=== PATIENT | female | born 1950 | race Caucasian/White ===

== ENCOUNTER 2017-02-14 10:10 | Outpatient (CLI) | payer MEDICARE, BC | END 2017-02-14 10:11 | disposition critical access hospital (66) | LOC: EMS 10:10 | PROVIDERS: ATTEND Surgery | DX: R07.9 Chest pain, unspecified (principal); R11.2 Nausea with vomiting, unspecified; R19.7 Diarrhea, unspecified | CPT/HCPCS: A0425; A0427 ==

== ENCOUNTER 2017-02-14 10:30 | Emergency (ER) | payer MEDICARE, BC ==
--- NOTE | 2017-02-14 11:06 | ED Physician Documentation ---
PD HPI CHEST PAIN - Stated complaint Stated Complaint: CP - Chief complaint Chief Complaint: Cardiac - History obtained from History obtained from: Patient - History of Present Illness Timing - onset: Enter time (1200), Last night Timing - onset during: Rest Timing - duration: Hours Timing - details: Gradual onset, Still present Quality: Pressure, Sharp Location: Right chest Radiation: Back Improved by: Rest Worsened by: Inspiration, Movement, Palpation Associated symptoms: Nausea, Vomiting. No: Shortness of air, Diaphoresis Similar symptoms before: Diagnosis (panic attack) Recently seen: Not recently seen - Additional information Additional information: 66-year-old female who has a history of hypertension and GERD has developed right-sided chest pain about midnight last night she has been able unable to get comfortable from this at all she is now discovered that this is actually under her ribs on the right side and she has vomited about 8 times. Review of Systems Constitutional: denies: Fever, Chills Eyes: denies: Decreased vision Ears: denies: Ear pain Nose: denies: Congestion Throat: denies: Sore throat Cardiac: reports: Chest pain / pressure. denies: Palpitations, Pedal edema, Calf pain Respiratory: denies: Dyspnea, Cough GI: reports: Abdominal Pain, Nausea, Vomiting : denies: Dysuria, Frequency PD PAST MEDICAL HISTORY - Past Medical History Past Medical History: Yes Cardiovascular: Hypertension Respiratory: None Endocrine/Autoimmune: None GI: GERD : None HEENT: Chronic vision loss Psych: Anxiety, Panic attacks Musculoskeletal: None Derm: None - Past Surgical History Past Surgical History: Yes General: Colonoscopy, EGD - Present Medications Home Medications: Ambulatory Orders Medication Instructions Recorded Confirmed Aspirin [Aspir 81] 81 mg DAILY 02/22/15 02/14/17 Calcium Carbonate [Tums] 1 ea PO DAILY 02/22/15 02/14/17 Lisinopril 20 mg DAILY 02/22/15 02/14/17 Multivitamin [Multivitamins] 1 ea PO DAILY 02/22/15 02/14/17 Omeprazole 20 mg PO DAILY 02/22/15 02/14/17 Sertraline HCl 50 mg DAILY 02/22/15 02/14/17 diphenhydrAMINE [Benadryl] 25 mg QPM 02/22/15 02/14/17 HYDROcod/ACETAM 5/325 [[place] 5/325] 1 - 2 ea PO Q6H PRN #15 tablet 02/14/17 Ondansetron Odt [Zofran] 4 mg TL Q6H PRN #10 tablet 02/14/17 - Allergies Allergies/Adverse Reactions: Allergies Allergy/AdvReac Type Severity Reaction Status Date / Time No Known Drug Allergies Allergy Verified 02/14/17 10:40 - Social History Does the pt smoke?: No Smoking Status: Never smoker Does the pt drink ETOH?: No Does the pt have substance abuse?: No - Immunizations Immunizations are current?: Yes PD ED PE NORMAL - Vitals Vital signs reviewed: Yes (Hypertensive) - General General: Alert and oriented X 3, Well developed/nourished, Other (Patient has the expression of pain with sales order clerk tone and flattened affect) - HEENT HEENT: Atraumatic, PERRL, EOMI - Neck Neck: Supple, no meningeal sign, No bony TTP - Cardiac Cardiac: RRR, No murmur - Respiratory Respiratory: No respiratory distress, Clear bilaterally - Abdomen Abdomen: Normal bowel sounds, Soft, Other (RUQ pain to palpation without garding or rebound. Specifically the gallbaldder is tender on sonographic palpation. ) - Back Back: No CVA TTP, No spinal TTP - Derm Derm: Normal color, No rash - Extremities Extremities: No deformity, No edema - Neuro Neuro: No motor deficit, No sensory deficit Eye Opening: Spontaneous Motor: Obeys Commands Verbal: Oriented GCS Score: 15 - Psych Psych: Normal mood, Normal affect Results - Vitals Vitals: Vital Signs - 24 hr 02/14/17 02/14/17 02/14/17 10:36 10:43 13:37 Temperature 36.7 C Heart Rate 70 63 Respiratory 16 16 Rate Blood Pressure 149/100 H 115/78 Blood Pressure 156/94 H [Left] O2 Saturation 100 93 Oxygen O2 Source Room air - EKG (time done) 1040 Rate: Rate (enter#) (62) Rhythm: NSR Ischemia: Normal ST segments Compare to prior EKG: Unchanged from prior EKG (02-22-2015) Computer interpretation: Agree with computer - Labs Labs: Laboratory Tests 02/14/17 02/14/17 02/14/17 11:50 11:50 11:50 WBC 11.2 H RBC 4.96 Hgb 13.2 Hct 39.0 MCV 78.6 L MCH 26.7 L MCHC 34.0 RDW 13.6 Plt Count 277 MPV 7.6 L Neut # 10.1 H Lymph # 0.7 L [place] # 0.3 Eos # 0.0 Baso # 0.1 Absolute Nucleated RBC 0.00 Nucleated RBC % 0.0 Sodium 135 Potassium 4.0 Chloride 101 Carbon Dioxide 24 Anion Gap 10.0 BUN 13 Creatinine 0.7 Estimated GFR (MDRD) 84 L Glucose 140 H Calcium 9.1 Total Bilirubin 0.6 AST 19 ALT 18 Alkaline Phosphatase 66 Troponin I < 0.04 Total Protein 7.1 Albumin 4.1 Globulin 3.0 Albumin/Globulin Ratio 1.4 Lipase 21 L Urine Color Urine Clarity Urine pH Ur Specific [place] Urine Protein Urine Glucose (UA) Urine Ketones Urine Occult Blood Urine Nitrite Urine Bilirubin Urine Urobilinogen Ur Leukocyte Esterase Ur Microscopic Review Urine Culture Comments 02/14/17 12:30 WBC RBC Hgb Hct MCV MCH MCHC RDW Plt Count MPV Neut # Lymph # [place] # Eos # Baso # Absolute Nucleated RBC Nucleated RBC % Sodium Potassium Chloride Carbon Dioxide Anion Gap BUN Creatinine Estimated GFR (MDRD) Glucose Calcium Total Bilirubin AST ALT Alkaline Phosphatase Troponin I Total Protein Albumin Globulin Albumin/Globulin Ratio Lipase Urine Color YELLOW Urine Clarity CLEAR Urine pH 7.0 Ur Specific [place] 1.020 Urine Protein NEGATIVE Urine Glucose (UA) NEGATIVE Urine Ketones NEGATIVE Urine Occult Blood NEGATIVE Urine Nitrite NEGATIVE Urine Bilirubin NEGATIVE Urine Urobilinogen 0.2 (NORMAL) Ur Leukocyte Esterase NEGATIVE Ur Microscopic Review NOT INDICATED Urine Culture Comments NOT INDICATED - Rads (name of study) u/s abd limited Radiology: Prelim report reviewed (Impression: 1. Cholelithiasis. No sonographic evidence of acute cholecystitis although the patient reportedly is on pain medication and therefore a false negative sonographic Wisdom sign cannot be excluded. 2. Mild/borderline common bile duct dilation, tapering to normal diameter distally. 3.Prominent liver with diffuse fatty infiltration. 4. Benign 5 cm hepatic cyst.), EMP read indepedently, See rad report Procedures - Bedside sono Bedside sono by EMP: With use of bedside ultrasound the gallbladder is imaged and there are multiple large stones. There is no free fluid around the gallbladder the gallbladder wall is not measured PD MEDICAL DECISION MAKING - ED course Complexity details: reviewed old records, reviewed results, re-evaluated patient , considered differential, d/w patient ED course: 66-year-old female with acute right upper quadrant abdominal pain has cholelithiasis on bedside exam confirmed with formal ultrasound and reported as negative for acute cholecystitis. The patient has good control of her pain with IV toradal. She has had a working relationship with Dr. Laboy and will follow up with her this week. She is given instructions to return to the ED if she has persistent or recurrent symptoms this weekend. Departure - Departure Disposition: Home, Self Care Clinical Impression: Cholelithiasis Qualifiers: Cholelithiasis location: gallbladder Cholecystitis presence: without cholecystitis Biliary obstruction: with biliary obstruction Qualified Code(s): K80.21 - Calculus of gallbladder without cholecystitis with obstruction Condition: Stable Instructions: ED Gallstone W Biliary Colic Follow-Up: Estefany Chaudhry PA-C [Primary Care Provider] - POLINA LABOY MD [Provider Admit Priv/Credential] - Prescriptions: HYDROcod/ACETAM 5/325 [[place] 5/325] 1 - 2 ea PO Q6H PRN #15 tablet PRN Reason: Pain Ondansetron Odt [Zofran] 4 mg TL Q6H PRN #10 tablet PRN Reason: Nausea / Vomiting
[2017-02-14] MEDS ORDERED: ONDANSETRON 4 MG/2 ML VIAL IVP STA (11:42)
[2017-02-14] MEDS ORDERED: KETOROLAC 60 MG/2 ML VIAL IVP STA (11:42)
[2017-02-14 12:00] LABS: BASOPHILS # (AUTO) 0.1 10^3/uL (0.0-0.1); BASOPHILS % (AUTO) 0.5 %; HGB - HEMOGLOBIN 13.2 g/dL (12.0-16.0); LYMPHOCYTES # (AUTO) 0.7 10^3/uL (1.5-3.5); LYMPHOCYTES % (AUTO) 6.3 %; MEAN CORPUSCULAR HEMOGLOBIN 26.7 pg (27.0-31.0); MEAN CORPUSCULAR VOLUME 78.6 fL (81.0-99.0); MEAN PLATELET VOLUME 7.6 fL (7.9-10.8); MONOCYTES # (AUTO) 0.3 10^3/uL (0.0-1.0); MONOCYTES % (AUTO) 2.8 %; NEUTROPHILS # (AUTO) 10.1 10^3/uL (1.5-6.6); NEUTROPHILS % (AUTO) 90.4 %; PLT - PLATELET COUNT 277 10^3/uL (130-450); RED BLOOD COUNT 4.96 10^6/uL (4.20-5.40); RED CELL DISTRIBUTION WIDTH 13.6 % (12.0-15.0); WHITE BLOOD COUNT 11.2 x10^3/uL (4.8-10.8)
[2017-02-14 12:12] LABS: ALBUMIN 4.1 g/dL (3.2-5.5); ALBUMIN/GLOBULIN RATIO 1.4 (1.0-2.2); BILIRUBIN,TOTAL 0.6 mg/dL (0.2-1.0); CALCIUM 9.1 mg/dL (8.5-10.3); CREATININE 0.7 mg/dL (0.4-1.0); TOTAL PROTEIN 7.1 g/dL (6.7-8.2)
[2017-02-14 12:49] LABS: BILIRUBIN,URINE NEGATIVE (NEGATIVE); GLUCOSE, URINE (UA) NEGATIVE (NEGATIVE); KETONES,URINE (UA) NEGATIVE (NEGATIVE); LEUKOCYTE ESTERASE, URINE NEGATIVE (NEGATIVE); NITRITE,URINE NEGATIVE (NEGATIVE); OCCULT BLOOD,URINE NEGATIVE (NEGATIVE); PROTEIN,URINE NEGATIVE (NEGATIVE); UROBILINOGEN,URINE 0.2 (NORMAL) E.U./dL (NORMAL)
[2017-02-14 12:54] LABS: CLARITY,URINE CLEAR (CLEAR)
--- NOTE | 2017-02-14 13:07 | Ultrasound Preliminary Report ---
Exam: US ABDOMEN LIMITED IMPRESSION: 1. Cholelithiasis. No sonographic evidence of acute cholecystitis although the patient reportedly is on pain medication and therefore a false negative sonographic Wisdom sign cannot be excluded. 2. Mild/borderline common bile duct dilatation, tapering to normal diameter distally. 3. Prominent liver with diffuse fatty infiltration. 4. Benign 5 cm hepatic cyst. [facility] SITE ID: [id number]
--- NOTE | 2017-02-14 13:07 | Ultrasound Report ---
EXAM: ABDOMEN ULTRASOUND LIMITED, RUQ EXAM DATE: 02/14/2017 12:30 PM. CLINICAL HISTORY: RUQ pain. COMPARISON: None. TECHNIQUE: Real-time scanning was performed with static images obtained. FINDINGS: Liver: Diffuse increase echogenicity consistent fatty infiltration. Superior lateral right lobe benig n appearing 5.0 cm cyst. No other focal abnormality. Large, right lobe length 19.3 cm. Main portal ve in flow: Hepatopetal. Gallbladder: Multiple mobile gallstones without evidence of wall thickening, dilatation, adjacent flu id or sonographic Wisdom sign. However, the patient reportedly is on pain meds and therefore a false negative Wisdom sign cannot be excluded. Biliary System: CBD measures 7.8 cm proximally, 4.3 cm distally. mm. Distalmost portion not completel y visualized. No intrahepatic ductal dilatation demonstrated. Other: The visualized right kidney is unremarkable. No free fluid demonstrated. IMPRESSION: 1. Cholelithiasis. No sonographic evidence of acute cholecystitis although the patient reportedly is on pain medication and therefore a false negative sonographic Wisdom sign cannot be excluded. 2. Mild/borderline common bile duct dilatation, tapering to normal diameter distally. 3. Prominent liver with diffuse fatty infiltration. 4. Benign 5 cm hepatic cyst. [facility] Referring Provider Line: [phone] SITE ID: [id number]
[2017-02-14 13:39] VITALS: BP 115/78
[2017-02-14] MEDS ORDERED: ONDANSETRON ODT 4 MG TABLET TL STA (13:41)
== END 2017-02-14 13:46 | disposition home or self-care (01) ==
LOC: EDUNIT# → ED 10:30
DX: K80.21 Calculus of gallbladder without cholecystitis with obstruction (principal); I10 Essential (primary) hypertension; Z79.82 Long term (current) use of aspirin
CPT/HCPCS: 36415; 76705; 80053; 81003; 83690; 84484; 85025; 93005; 96374; 96375; 99284; Q0162; 81001; 87086

== ENCOUNTER 2017-06-01 08:00 | Outpatient (CLI) | payer MEDICARE, BC ==
[2017-06-01 13:20] LABS: HB2 TOTAL 15.1 g/dL; HEMOGLOBIN A1C 0.57 g/dL; HEMOGLOBIN A1C % 5.6 % (4.6-6.2)
[2017-06-01 13:21] LABS: ALBUMIN 4.1 g/dL (3.2-5.5); ALBUMIN/GLOBULIN RATIO 1.5 (1.0-2.2); ALKALINE PHOSPHATASE 68 IU/L (42-121); ALT ALANINE AMINOTRANSFERASE 19 IU/L (10-60); AST ASPARTATE AMINOTRANSFERASE 19 IU/L (10-42); BILIRUBIN,TOTAL 0.8 mg/dL (0.2-1.0); BUN - BLOOD UREA NITROGEN 11 mg/dL (6-20); CALCIUM 9.3 mg/dL (8.5-10.3); CARBON DIOXIDE - CO2 26 mmol/L (21-32); CHLORIDE 103 mmol/L (101-111); CHOL/HDL RATIO 4.4 (<4.4); CHOLESTEROL 195 mg/dL; CREATININE 0.8 mg/dL (0.4-1.0); GFR - MDRD 72 (>89); GLUCOSE 88 mg/dL (70-100); HDL CHOLESTEROL 44 mg/dL; LDL CHOLESTEROL,CALCULATED 128 mg/dL; LDL/HDL RATIO 2.9 (<4.4); SODIUM 136 mmol/L (135-145); TOTAL PROTEIN 6.9 g/dL (6.7-8.2); VLDL CHOLESTEROL 23 mg/dL
== END 2017-06-01 08:01 ==
LOC: LAB.WCP 08:00
PROVIDERS: ATTEND Physician Assistant Medical
DX: R73.9 Hyperglycemia, unspecified (principal); E78.5 Hyperlipidemia, unspecified
CPT/HCPCS: 36415; 80053; 80061; 83036; 83721

== ENCOUNTER 2017-09-17 14:48 | Outpatient (CLI) | payer MEDICARE, BC ==
--- NOTE | 2017-09-18 14:42 | MRI Report ---
Procedure Date: 09/17/2017 Accession Number: [id number] / [id number] Procedure: MRI - Shoulder LT W/O CPT Code: FULL RESULT: EXAM: LEFT SHOULDER MRI WITHOUT CONTRAST EXAM DATE: 09/17/2017 03:29 PM. CLINICAL HISTORY: Chronic left shoulder pain. Shoulder impingement syndrome. COMPARISON: Radiographs of the left shoulder 01/30/2016. TECHNIQUE: Multiplanar, multisequence T1-weighted and fluid-sensitive sequences of the shoulder without contrast. Other: None. FINDINGS: Acromioclavicular Region: The acromion is type II. Jzfb-lf-refdgefi osteoarthritis and small effusion at the acromioclavicular joint. The coracoacromial and coracoclavicular ligaments are intact. Small amount of fluid at the subacromial/subdeltoid bursa. Glenohumeral Region: No subluxation. Ibcaa-wp-miznvzll sized joint effusion. The articular cartilage is unremarkable. The glenohumeral ligaments and joint capsule are unremarkable. Bone Marrow: Small enthesophytes at the greater tuberosity. No acute fracture or bone lesions. Labrum: The labrum is unremarkable on this nonarthrographic study. Musculature/Rotator Cuff: There is supraspinatus tendinosis. There is an approximately 7 x 7 mm high-grade partial-thickness intrasubstance insertional tear at the distal end of the supraspinatus-infraspinatus tendon junction. There is bursal surface fraying at the supraspinatus and infraspinatus tendons. The teres minor and subscapularis tendons are intact. Grade 1 fatty atrophy of the supraspinatus, infraspinatus, and subscapularis muscles. Grade 4 atrophy of the teres minor muscle. Biceps Tendon: There is complete tear of the long head biceps tendon. The proximal, intra-articular segment of the long head biceps tendon is retracted and flipped posteromedially within the posteromedial superior aspect of the glenohumeral joint (coronal images 7 through 13, sagittal images 16 through 18, and axial images 22-26). The distal aspect of the long head biceps tendon is torn and retracted distally. Other: The subcutaneous tissues are unremarkable. IMPRESSION: 1. Complete tear of the long head biceps tendon. The proximal, intra-articular segment of the long head biceps tendon is retracted and flipped posteromedially within the posteromedial superior aspect of the glenohumeral joint. The distal aspect of the long head biceps tendon is torn and retracted distally. 2. Supraspinatus tendinosis. A 7 x 7 mm high-grade partial-thickness intrasubstance insertional tear at the distal end of the supraspinatus-infraspinatus tendon junction. Bursal surface fraying at the supraspinatus and infraspinatus tendons. 3. Grade 1 fatty atrophy of the supraspinatus, infraspinatus, and subscapularis muscles. Grade 4 fatty atrophy of the teres minor muscle which may be due to a chronic denervation process such as quadrilateral space syndrome. 4. Bmbo-hn-qhhvwvus osteoarthritis and small effusion at the acromioclavicular joint. Small amount of fluid at the subacromial/subdeltoid bursa. Small to moderate-sized glenohumeral joint effusion. [facility] MUSCULOSKELETAL RADIOLOGY SECTION
== END 2017-09-17 14:49 | disposition home or self-care (01) ==
LOC: DI 14:48
PROVIDERS: ATTEND Physician Assistant Medical
DX: M75.42 Impingement syndrome of left shoulder (principal); M75.102 Unspecified rotator cuff tear or rupture of left shoulder, not specified as traumatic; S46.112A Strain of muscle, fascia and tendon of long head of biceps, left arm, initial encounter; M19.012 Primary osteoarthritis, left shoulder

== ENCOUNTER 2018-05-03 10:10 | Outpatient (CLI) | payer MEDICARE, BC ==
--- NOTE | 2018-05-03 11:27 | XRAY Report ---
Reason: COUGH,CHRONIC Procedure Date: 05/03/2018 Accession Number: [id number] / [id number] Procedure: WCP - Chest 2 View X-Ray CPT Code: 26957 FULL RESULT: EXAM: CHEST RADIOGRAPHY EXAM DATE: 05/03/2018 10:36 AM. CLINICAL HISTORY: Cough, chronic. COMPARISON: None. TECHNIQUE: 2 views. FINDINGS: Lungs/Pleura: No focal opacities evident. No pleural effusion. No pneumothorax. Normal volumes. Mediastinum: Heart and mediastinal contours are unremarkable. Other: None. IMPRESSION: Normal 2-view chest radiography. [facility]
== END 2018-05-03 10:11 | disposition home or self-care (01) ==
LOC: DI.WCP 10:10
PROVIDERS: ATTEND Physician Assistant Medical
DX: R05 Cough (principal)
CPT/HCPCS: 71046

== ENCOUNTER 2018-05-28 08:14 | Outpatient (CLI) | payer MEDICARE, BC ==
[2018-05-28 13:43] LABS: BASOPHILS # (AUTO) 0.1 10^3/uL (0.0-0.1); BASOPHILS % (AUTO) 1.4 %; EOSINOPHILS # (AUTO) 0.1 10^3/uL (0.0-0.7); EOSINOPHILS % (AUTO) 1.6 %; HGB - HEMOGLOBIN 13.9 g/dL (12.0-16.0); LYMPHOCYTES # (AUTO) 2.2 10^3/uL (1.5-3.5); LYMPHOCYTES % (AUTO) 32.7 %; MEAN CORPUSCULAR HEMOGLOBIN 26.9 pg (27.0-31.0); MEAN CORPUSCULAR HGB CONC 32.7 g/dL (32.0-36.0); MEAN CORPUSCULAR VOLUME 82.4 fL (81.0-99.0); MEAN PLATELET VOLUME 8.5 fL (7.9-10.8); MONOCYTES # (AUTO) 0.5 10^3/uL (0.0-1.0); MONOCYTES % (AUTO) 8.3 %; NEUTROPHILS # (AUTO) 3.7 10^3/uL (1.5-6.6); PLT - PLATELET COUNT 338 10^3/uL (130-450); RED BLOOD COUNT 5.19 10^6/uL (4.20-5.40); RED CELL DISTRIBUTION WIDTH 13.9 % (12.0-15.0); WHITE BLOOD COUNT 6.6 x10^3/uL (4.8-10.8)
[2018-05-28 14:06] LABS: ALBUMIN 3.9 g/dL (3.2-5.5); ALBUMIN/GLOBULIN RATIO 1.2 (1.0-2.2); ALKALINE PHOSPHATASE 80 IU/L (42-121); ALT ALANINE AMINOTRANSFERASE 22 IU/L (10-60); AST ASPARTATE AMINOTRANSFERASE 22 IU/L (10-42); BILIRUBIN,TOTAL 0.8 mg/dL (0.2-1.0); BUN - BLOOD UREA NITROGEN 21 mg/dL (6-20); CALCIUM 9.4 mg/dL (8.5-10.3); CARBON DIOXIDE - CO2 27 mmol/L (21-32); CHLORIDE 102 mmol/L (101-111); CHOL/HDL RATIO 4.2 (<4.4); CHOLESTEROL 220 mg/dL; CREATININE 0.8 mg/dL (0.4-1.0); GFR - MDRD 72 (>89); GLUCOSE 98 mg/dL (70-100); HDL CHOLESTEROL 53 mg/dL; LDL CHOLESTEROL,CALCULATED 132 mg/dL; LDL/HDL RATIO 2.5 (<4.4); SODIUM 137 mmol/L (135-145); TOTAL PROTEIN 7.2 g/dL (6.7-8.2); VLDL CHOLESTEROL 35 mg/dL
== END 2018-05-28 23:59 | disposition home or self-care (01) ==
LOC: LAB.WCP 08:14
PROVIDERS: ATTEND Physician Assistant Medical
DX: E78.5 Hyperlipidemia, unspecified (principal); I10 Essential (primary) hypertension
CPT/HCPCS: 36415; 80053; 80061; 83721; 85025

== ENCOUNTER 2018-07-06 08:19 | Outpatient (CLI) | payer MEDICARE, BC ==
--- NOTE | 2018-07-06 11:20 | DEXA Report ---
Reason: BONE DISORDER Procedure Date: 07/06/2018 Accession Number: [id number] / [id number] Procedure: DEX - Dexa Spine and/or Hip CPT Code: FULL RESULT: EXAM: Dexa Spine and/or Hip DATE: 07/06/2018 8:48 AM CLINICAL HISTORY: POSTMENOPAUSAL TECHNIQUE: Dual energy x-ray absorptiometry (DXA) was performed on a [employer] System. Regions measured are the AP Spine, femoral neck, and if needed forearm. COMPARISON: 05/23/2015 In accordance with the International Society for Clinical Densitometry (ISCD) guidelines, data from previous exams may be reanalyzed using current recommendations and techniques. This is done to allow a more accurate basis for comparison with the current study. FINDINGS: The data for the lumbar spine is as follows: BMD (g/cm/cm) T-SCORE Z-SCORE REGION L1 0.792 -2.8 -2.4 L2 0.904 -2.5 -2.0 L3 1.043 -1.3 -0.9 L4 0.974 -1.9 -1.4 TOTAL 0.934 -2.0 -1.6 NOTE: All evaluable vertebrae are used for classification The data for the hip is as follows: BMD (g/cm/cm) T-SCORE Z-SCORE REGION Neck 0.812 -1.6 -0.9 TOTAL 0.757 -2.0 -1.6 NOTE: The femoral neck or total proximal femur, whichever is lowest, is used for classification. IMPRESSION: THE WHO CLASSIFICATION BASED ON THE INTERNATIONAL REFERENCE STANDARD IS OSTEOPENIA (Reference Total Left Hip and Lumbar Spine L1-L4). THE FRACTURE RISK IS INCREASED. RECOMMENDATION: Patients with diagnosis of osteoporosis or osteopenia should have regular bone mineral density assessment. For those eligible for Medicare, routine testing is allowed once every 2 years. Testing frequency can be increased for patients who have rapidly progressing disease or for those who are receiving medical therapy to restore bone mass. COMMENT: World Health Organization (WHO) definitions for osteoporosis and osteopenia: NORMAL BMD: T-score at -1.0 or higher, fracture risk is low OSTEOPENIA BMD: T-score between -1.0 and -2.5, fracture risk is increased. OSTEOPOROSIS BMD: T-score at -2.5 or lower, fracture risk is high. National Osteoporosis Foundation recommends: 1. Obtain adequate dietary calcium (at least 1200 mg per day) and vitamin D (400-800 international units per day). 2. Participate, as appropriate, in regular weightbearing and muscle-strengthening exercise. 3. Avoid tobacco use and reduce alcohol and caffeine intake. 4. For more detailed information see the website at www.NOF.org.
== END 2018-07-06 08:20 | disposition home or self-care (01) ==
LOC: DI 08:19
PROVIDERS: ATTEND Physician Assistant Medical
DX: M85.89 Other specified disorders of bone density and structure, multiple sites (principal)
CPT/HCPCS: 77080

== ENCOUNTER 2018-07-06 08:19 | Outpatient (CLI) | payer MEDICARE, BC ==
--- NOTE | 2018-07-06 15:17 | Mammography Report ---
Reason: SCREENING MAMMO Procedure Date: 07/06/2018 Accession Number: [id number] / [id number] Procedure: GIOVANNA - Screening Mammo w/Nikc CPT Code: FULL RESULT: EXAM: Screening Mammo w/Nick DATE: 07/06/2018 9:06 AM CLINICAL HISTORY: Routine screening TECHNIQUE: (B) - Bilateral CC and MLO views were obtained. COMPARISON: 04/09/2015, 06/03/2012 PARENCHYMAL PATTERN: (A) - The breasts demonstrate scattered fibroglandular densities bilaterally. FINDINGS: No significant interval change. There are no suspicious masses, calcifications, or areas of distortion. IMPRESSION: Negative examination. BI-RADS category 1. RECOMMENDATION: (ANNUAL) - Recommend routine annual screening mammography. BI-RADS CATEGORY: (1) - Negative. STANDARD QUALIFYING STATEMENTS: 1. This examination was not reviewed with the aid of Computer-Aided Detection (CAD). 2. A negative or benign imaging report should not preclude biopsy if clinically suspicious findings are present. 3. Dense breasts may obscure an underlying neoplasm. 4. This examination was reviewed with the aid of 3D breast imaging (tomosynthesis).
== END 2018-07-06 08:20 | disposition home or self-care (01) ==
LOC: DI 08:19
DX: Z12.31 Encounter for screening mammogram for malignant neoplasm of breast (principal)
CPT/HCPCS: 77063; 77067

== ENCOUNTER 2019-11-17 18:33 | Outpatient (CLI) | payer MEDICARE, BC ==
--- NOTE | 2019-11-18 09:03 | Ultrasound Report ---
PROCEDURE: Duplex Ext Veins Left INDICATIONS: LEFT LEG SWELLING TECHNIQUE: Real-time imaging, as well as color and pulse Doppler interrogation, were performed of the lower extr emity deep veins from the inguinal ligament to the popliteal fossa. COMPARISON: None. FINDINGS: The deep veins are normally compressible, and free of intraluminal thrombus. Color and pu lse Doppler demonstrate normal phasic intraluminal flow. There is normal augmentation response to di stal compression maneuver. Fluid collections noted in the popliteal fossa. Fluid collection in the medial aspect of the poplitea l fossa measures 4.1 x 0.9 cm. Fluid collection in the mid aspect of the popliteal fossa measures 6.2 cm in diameter. Fluid pocket in the lateral margin of the popliteal fossa measures 1.9 x 2.3 x 0.7 c m. IMPRESSION: 1. No evidence of deep vein thrombosis involving the left lower extremity. 2. Multiple fluid collections in the left popliteal fossa. Fluid collections are nonspecific may be r elated to popliteal cyst or could represent seroma/hematomas or abscess. These correlate with clinica l data. Reviewed by: Xiomara Yap MD, PhD on 11/18/2019 9:02 AM PDT Approved by: Xiomara Yap MD, PhD on 11/18/2019 9:02 AM PDT Station ID: [id number]
== END 2019-11-17 18:34 | disposition home or self-care (01) ==
LOC: DI 18:33
PROVIDERS: ATTEND Family Medicine
DX: R93.6 Abnormal findings on diagnostic imaging of limbs (principal)

== ENCOUNTER 2019-12-23 10:48 | Outpatient (CLI) | payer MEDICARE, BC ==
--- NOTE | 2019-12-23 17:03 | XRAY Report ---
PROCEDURE: Knee Standing LT INDICATIONS: POPLITEAL CYST TECHNIQUE: 3 views of the left knee, and 2 views of the right knee. COMPARISON: None. FINDINGS: Bones: No acute fractures or dislocations. No suspicious bony lesions. There is mild bilateral medi al and left patellofemoral compartment narrowing. No erosions or periarticular osteophytes are identi fied. Soft tissues: No knee joint effusions. No suspicious soft tissue calcification. IMPRESSION: Mild early osteoarthritic changes within the medial compartment. No visualized popliteal cyst. Please refer to ultrasound report of 11/17/2019. Reviewed by: Liset Veliz MD on 12/23/2019 5:02 PM PST Approved by: Liset Veliz MD on 12/23/2019 5:02 PM PST Station ID: [id number]
== END 2019-12-23 23:59 | disposition home or self-care (01) ==
LOC: DI.N 10:48
PROVIDERS: ATTEND Physician Assistant
DX: M71.22 Synovial cyst of popliteal space [Baker], left knee (principal); M17.12 Unilateral primary osteoarthritis, left knee

== ENCOUNTER 2020-04-07 14:46 | Outpatient (CLI) | payer MEDICARE, BC ==
--- NOTE | 2020-04-09 08:49 | MRI Report ---
PROCEDURE: Knee LT W/O INDICATIONS: LT KNEE INTERNAL DEANGEMENT TECHNIQUE: Noncontrast sagittal PD fast spin echo and T2 fast spin echo with fat saturation, sagittal 3-D gradie nt sequence with fat saturation; coronal T1 spin echo and PD fast spin echo with fat saturation, and axial PD fast spin echo with fat saturation through the knee. COMPARISON: None. FINDINGS: Image quality: Excellent. Menisci: Focal signal abnormality involving posterior horn of medial meniscus extending to inferior a rticulating surface is seen consistent with focal oblique tear. There is also a complex tear involvin g anterior horn, body and posterior horn of lateral meniscus extending to both superior and inferior articulating surfaces. Peripheral displacement of lateral meniscus is seen bowing lateral collateral ligament. The meniscal root ligaments appear intact. Cruciate ligaments: The anterior and posterior cruciate ligaments appear intact. Medial structures: The medial collateral ligament appears intact. The posterior oblique ligament, s emimembranosus tendon insertions, and oblique popliteal ligament, and meniscocapsular junction appear intact. Visualized portions of the pes anserinus tendons appear normal. No abnormal bursal fluid. Lateral structures: Low-grade LCL sprain/partial thickness tear is seen. The popliteus tendon appears normal; the popliteofibular ligament appears intact. The posterosuperior and anteroinferior poplite omeniscal fascicles appear intact. The arcuate and fabellofibular ligaments appear intact, around th e lateral inferior geniculate artery. Iliotibial band appears normal. Anterior structures: The quadriceps and patellar tendons appear intact. Patellar alignment is mikaela l. No femoral trochlear dysplasia or ventral trochlear prominence. No edema in the infrapatellar fa t pad. Bones and cartilage: There is moderate lateral femoral tibial compartment osteoarthritis and low to m oderate grade chondromalacia with mild edema involving lateral portion of proximal tibia extending to the lateral tibial plateau without discrete fracture line. Mild medial femoral tibial compartment os teoarthritis and low-grade chondromalacia is also seen. Patella cartilage is intact. Joint space: Small to moderate amount of joint effusion is seen, no gross intra-articular loose body . Small popliteal cyst is seen. Normal appearing synovial plicae are incidentally noted. IMPRESSION: 1. Subtle oblique tear involving posterior horn of medial meniscus extending to inferior articulating surface. Complex tear involving entire lateral meniscus extending to both superior and inferior sirena culating surfaces. 2. Low-grade LCL sprain/partial thickness tear. MCL is intact. Cruciate ligaments are intact. 3. 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 Mild medial femoral tibial compartment osteoarthritis and chondromalacia. Small to moderate amount of joint effusion, no gross loose body. Reviewed by: Linden Duvall MD on 04/09/2020 8:47 AM PST Approved by: Linden Duvall MD on 04/09/2020 8:47 AM PST Station ID: [id number]
== END 2020-04-07 14:47 | disposition home or self-care (01) ==
LOC: DI 14:46
PROVIDERS: ATTEND Physician Assistant
DX: M23.92 Unspecified internal derangement of left knee (principal); S83.282A Other tear of lateral meniscus, current injury, left knee, initial encounter; S83.242A Other tear of medial meniscus, current injury, left knee, initial encounter; S83.422A Sprain of lateral collateral ligament of left knee, initial encounter; M17.12 Unilateral primary osteoarthritis, left knee

== ENCOUNTER 2021-05-13 11:08 | Outpatient (CLI) | payer MEDICARE, BC ==
[2021-05-13 18:16] LABS: BASOPHILS # (AUTO) 0.1 10^3/uL (0.0-0.1); BASOPHILS % (AUTO) 1.3 %; EOSINOPHILS # (AUTO) 0.1 10^3/uL (0.0-0.7); EOSINOPHILS % (AUTO) 1.8 %; HCT - HEMATOCRIT 39.4 % (37.0-47.0); HGB - HEMOGLOBIN 12.7 g/dL (12.0-16.0); LYMPHOCYTES % (AUTO) 33.4 %; MEAN CORPUSCULAR HEMOGLOBIN 27.3 pg (27.0-31.0); MEAN CORPUSCULAR HGB CONC 32.2 g/dL (32.0-36.0); MEAN CORPUSCULAR VOLUME 84.7 fL (81.0-99.0); MEAN PLATELET VOLUME 10.8 fL (7.9-10.8); MONOCYTES # (AUTO) 0.5 10^3/uL (0.0-1.0); MONOCYTES % (AUTO) 7.8 %; NEUTROPHILS # (AUTO) 3.3 10^3/uL (1.5-6.6); NEUTROPHILS % (AUTO) 55.4 %; PLT - PLATELET COUNT 294 10^3/uL (130-450); RED BLOOD COUNT 4.65 10^6/uL (4.20-5.40); RED CELL DISTRIBUTION WIDTH 13.2 % (12.0-15.0)
[2021-05-13 18:27] LABS: ALBUMIN 3.8 g/dL (3.2-5.5); ALBUMIN/GLOBULIN RATIO 1.2 (1.0-2.2); ALKALINE PHOSPHATASE 62 IU/L (42-121); ALT ALANINE AMINOTRANSFERASE 16 IU/L (10-60); AST ASPARTATE AMINOTRANSFERASE 18 IU/L (10-42); BILIRUBIN,TOTAL 0.8 mg/dL (0.2-1.0); BUN - BLOOD UREA NITROGEN 14 mg/dL (6-20); CALCIUM 9.3 mg/dL (8.5-10.3); CARBON DIOXIDE - CO2 26 mmol/L (21-32); CHLORIDE 105 mmol/L (101-111); CHOL/HDL RATIO 4.2 (<4.4); CHOLESTEROL 188 mg/dL; CREATININE 0.8 mg/dL (0.4-1.0); GFR - MDRD 71 (>89); GLUCOSE 94 mg/dL (70-100); HDL CHOLESTEROL 45 mg/dL; LDL CHOLESTEROL,CALCULATED 107 mg/dL; LDL/HDL RATIO 2.4 (<4.4); POTASSIUM 3.7 mmol/L (3.5-5.0); SODIUM 141 mmol/L (135-145); TOTAL PROTEIN 6.9 g/dL (6.7-8.2); TRIGLYCERIDES 180 mg/dL; VLDL CHOLESTEROL 36 mg/dL
[2021-05-13 21:11] LABS: ESTIMATED AVERAGE GLUCOSE 114 mg/dL (70-100); HEMOGLOBIN A1c% 5.6 % (4.27-6.07)
== END 2021-05-13 11:09 | disposition home or self-care (01) ==
LOC: LAB.N 11:08
PROVIDERS: ATTEND Physician Assistant Medical
DX: E78.5 Hyperlipidemia, unspecified (principal); R73.9 Hyperglycemia, unspecified; I10 Essential (primary) hypertension
CPT/HCPCS: 36415; 80053; 80061; 83036; 83721; 85025

== ENCOUNTER 2021-06-08 08:00 | Outpatient (CLI) | payer MEDICARE, BC ==
--- NOTE | 2021-06-08 14:53 | XRAY Report ---
PROCEDURE: Chest 2 View X-Ray INDICATIONS: ACUTE COUGH TECHNIQUE: 2 view(s) of the chest. COMPARISON: 05/03/2018, 02/22/2015 FINDINGS: Surgical changes and devices: Upper abdominal clips are seen on the lateral view. Lungs and pleura: No pleural effusions or pneumothorax. Lungs are clear. Mediastinum: Mediastinal contours are normal. Heart size is normal. Bones and chest wall: Age-appropriate degenerative changes are seen. No suspicious bony abnormalit ies. Soft tissues appear unremarkable. IMPRESSION: Clear lungs, without infiltrates. If there is strong clinical concern for a developing or new pulmonary process, please consider a shor t-term follow-up 2 view chest series, performed in deep inspiration. Reviewed by: Abdi Jorge MD on 06/08/2021 1:52 PM ERICK Approved by: Abdi Jorge MD on 06/08/2021 1:52 PM ERICK Station ID: [id number]
== END 2021-06-08 23:59 | disposition home or self-care (01) ==
LOC: DI.N 08:00
PROVIDERS: ATTEND Physician Assistant
DX: R05.1 Acute cough (principal); Z20.822 Contact with and (suspected) exposure to COVID-19

== ENCOUNTER 2021-06-08 08:00 | Outpatient (CLI) | payer MEDICARE, BC | END 2021-06-08 08:01 | disposition home or self-care (01) | LOC: LAB.N 08:00 | PROVIDERS: ATTEND Physician Assistant | DX: R05.1 Acute cough (principal); Z20.822 Contact with and (suspected) exposure to COVID-19 ==

== ENCOUNTER 2021-12-10 15:49 | Outpatient (CLI) | payer MEDICARE, BC ==
--- NOTE | 2021-12-12 10:28 | Mammography Report ---
BILATERAL DIGITAL SCREENING MAMMOGRAM 3D/2D: 12/10/2021 CLINICAL: Routine screening. Comparison is made to exams dated: 07/06/2018 mammogram, 04/09/2015 mammogram, and 06/03/2012 mammogram - [facility]. Both breasts are almost entirely fatty (category a/<25% glandular tissue). No significant masses, calcifications, or other findings are seen in either breast. There has been no significant interval change. IMPRESSION: NEGATIVE There is no mammographic evidence of malignancy. A 1 year screening mammogram is recommended. Based on the Tyrer Cuzick model (a risk assessment model) the patients lifetime risk is 3.3% and her 10 year risk is 2.1%. According to the ACR, ACS, and NCCN guidelines, an annual breast MRI exam ernesto g with mammogram is recommended if the patients lifetime risk is 20% or greater. This exam was interpreted at Station ID: [id number]. NOTE: For mammograms, a report in lay terms will be sent to the patient. Approximately 15% of breast malignancies will not be visualized mammographically. In the management of a palpable breast mass, a negative mammogram must not discourage biopsy of a clinically suspicious lesion. Electronically Signed By: Liliana yap/[email or web address]:12/11/2021 17:20:01 ACR BI-RADS Category 1: Negative 3341F PARENCHYMAL PATTERN: (F) - The breast(s) demonstrate(s) diffuse fatty replacement. BI-RADS CATEGORY: (1) - 1 RECOMMENDATION: (ANNUAL) - Recommend routine annual screening mammography. [id number] 1 year screening LATERALITY: (B)
== END 2021-12-10 15:50 | disposition home or self-care (01) ==
LOC: DI.N 15:49
DX: Z12.31 Encounter for screening mammogram for malignant neoplasm of breast (principal)

== ENCOUNTER 2022-10-09 14:19 | Outpatient (CLI) | payer MEDICARE, BC ==
--- NOTE | 2022-10-09 18:32 | DEXA Report ---
PROCEDURE: Dexa Spine and/or Hip INDICATIONS: POST MENOPAUSAL TECHNIQUE: Dual energy x-ray absorptiometry (DEXA) was performed in the regions detailed below. COMPARISON: 07/06/2018 FINDINGS: Lumbar Spine: Bone Mineral Density 1.082 g/cm/cm,T score -0.8. Previously -2.0 Left Femoral Neck: Bone Mineral Density 0.734 g/cm/cm, T score -2.2. Previously -1.6 Left Hip: Bone Mineral Density 0.738 g/cm/cm,T score -2.1. Previously -2.0 (T score greater or equal to -1.0: NORMAL) (T score from -1.1 to -2.4: OSTEOPENIA) (T score less than or equal to -2.5 to: OSTEOPOROSIS) IMPRESSION: Osteopenia. Patients with diagnosis of osteoporosis or osteopenia should have regular bone mineral density assess ment. For those eligible for Medicare, routine testing is allowed once every 2 years. Testing frequ ency can be increased for patients who have rapidly progressing disease or for those who are receivin g medical therapy to restore bone mass. Reviewed by: Nelson Angela MD on 10/09/2022 5:30 PM ERICK Approved by: Nelson Angela MD on 10/09/2022 5:30 PM AKMARS Station ID: [id number]
== END 2022-10-09 14:20 | disposition home or self-care (01) ==
LOC: DI 14:19
PROVIDERS: ATTEND Physician Assistant Medical
DX: Z78.0 Asymptomatic menopausal state (principal); M85.80 Other specified disorders of bone density and structure, unspecified site